=== PATIENT | female | born 1995 | race Caucasian/White ===

== ENCOUNTER 2016-09-20 07:04 | Emergency (ER) | payer MEDICAID ==
[~2016-09-20] VITALS: Ht 165.1 cm; Wt 68.0 kg
[2016-09-20] MEDS ORDERED: SODIUM CHLORIDE 0.9% 1,000 ML IV ONE ×2 (07:49→08:21)
[2016-09-20 08:23] LABS: BASOPHILS % 0.5 % (0.0-2.0); EOSINOPHILS % 2.5 % (0.0-5.0); HEMATOCRIT. 38.7 % (36.0-48.0); HEMOGLOBIN. 13.1 g/dL (12.0-16.0); LYMPHOCYTES % 32.8 % (20.0-50.0); MEAN CORPUSCULAR HEMOGLOBIN 29.8 pg (28.0-32.0); MEAN CORPUSCULAR HGB CONC 33.7 g/dL (31.0-37.0); MEAN CORPUSCULAR VOLUME 88.5 fL (81.0-99.0); MEAN PLATELET VOLUME 8.6 fl (7.4-10.4); MONOCYTES % 11.1 % (2.0-8.0); NEUTROPHILS % 53.1 % (40.0-76.0); PLATELET 287 x1000/uL (130-400); RED BLOOD CELL COUNT 4.38 mill/uL (4.2-5.4); RED CELL DISTRIBUTION WIDTH 14.1 % (11.6-14.6); WHITE BLOOD COUNT 4.5 x1000/uL (4.5-11.0)
[2016-09-20 08:30] LABS: ANION GAP 12; CALCIUM 8.7 mg/dL (8.5-10.1); CARBON DIOXIDE 27 mEq/L (21-32); CHLORIDE 108 mEq/L (98-107); ETHANOL BLOOD < 10 mg/dL; INDEX HEMOLYSI 1 (1-3); INDEX ICTERIC 2 (1-4); INDEX LIPEMIC 1 (1-3); TROPONIN I < 0.02 ng/mL (0.00-0.04); UREA NITROGEN BLOOD 5 mg/dL (7-21); eGFR > 60 mL/min (>60)
[2016-09-20 08:35] LABS: HCG SCREEN NEGATIVE
[2016-09-20] MEDS ORDERED: POTASSIUM CHLORIDE 20MEQ TABLET SR PO SCH (09:00)
[2016-09-20 11:46] LABS: *BARBITURATES SCREEN URINE NEGATIVE (NEGATIVE); *BENZODIAZEPINES SCREEN URINE NEGATIVE (NEGATIVE); *COCAINE SCREEN URINE NEGATIVE (NEGATIVE)
[2016-09-20 11:49] LABS: *AMPHETAMINES SCREEN URINE PRESUMTIVE POSITIVE (NEGATIVE)
[2016-09-20 12:52] LABS: CANNABINOID URINE SCREEN NEGATIVE (NEGATIVE); ECSTASY MDMA SCREEN URINE NEGATIVE (NEGATIVE); METHADONE URINE SCREEN NEGATIVE (NEGATIVE); OPIATES URINE SCREEN NEGATIVE (NEGATIVE); PHENCYCLIDINE URINE SCREEN NEGATIVE (NEGATIVE)
[2016-09-20 14:03] VITALS: BP 107/59
== END 2016-09-20 14:06 | disposition home or self-care (01) ==
LOC: ER 07:21
DX: F15.10 Other stimulant abuse, uncomplicated (principal); E86.0 Dehydration; E87.6 Hypokalemia; R55 Syncope and collapse; J45.909 Unspecified asthma, uncomplicated
CPT/HCPCS: 36415; 71010; 80048; 80305; 84484; 84703; 85025; 93005; 96360; 96361; 99285; G0482; J7030; Z7610